=== PATIENT | male | born 1965 | race Caucasian/White ===

== ENCOUNTER 2021-08-28 11:34 | Inpatient (IN) ==
[2021-08-28] MEDS ORDERED: cefTRIAXone 2 GM in DEXTROSE 5% IN WATER 50 ML IV ONE ×2 (11:57→12:57)
[2021-08-28] MEDS ORDERED: 0.9 % SODIUM CHLORIDE 1,000 ML IV ONE ×3 (11:57→16:23)
--- NOTE | 2021-08-28 12:06 | Emergency Department Note ---
HPI General Chief complaint: Urogenital-Male Stated complaint: fever, chills, urethral pain, low white count Time Seen by Provider: 08/28/21 11:55 Source: patient Mode of arrival: ambulatory Limitations: no limitations History of Present Illness HPI Narrative: Narrative: 56 yo M w/ h/o DM2, CAD, asthma, p/w possible sepsis. He presented to minor care this AM w/ dysuria, urinary frequency, fever, and malaise, which all started last night. Sx have been constant w/ no alleviating/aggravating factors since then. He has had one previous episode of UTI in the past but not this severe. He denies any immunosuppression Hx and is not on any immunosuppressing agents including steroids. At minor care he was found to be tachycardic, his WBC were 18, and his UA was positive. He was started on a 1L NS bolus w/ minimal i mprovement in HR and was thus sent here for ongoing care. Related Data Home Medications Medication Instructions Recorded Confirmed albuterol sulfate 90 mcg/actuation 2 puff INHALATION Q4H g 06/26/20 08/28/21 aerosol inhaler atorvastatin 40 mg tablet 40 mg PO QDAY 06/26/20 08/28/21 metformin 1,000 mg tablet 1,000 mg PO BID 06/26/20 08/28/21 clopidogrel 75 mg tablet 75 mg PO QDAY 11/21/20 08/28/21 Previous Rx's Medication Instructions Recorded sulfamethoxazole 800 1 tab PO BID 5 Days #10 tab 08/28/21 mg-trimethoprim 160 mg tablet Allergies Allergy/AdvReac Type Severity Reaction Status Date / Time No Known Drug Allergies Allergy Verified 08/28/21 11:47 Review of Systems ROS ROS Narrative: Narrative: All systems ED: reviewed and negative except as stated. PFSH Narrative Patient History Narrative: Narrative: Medical/Surgical/Family History All Active Problems (Updated 08/28/21 @ 15:08 by Calvin Rodriguez MD) Asthma (Acute) Pyelonephritis (Acute) Dysuria (Acute) DM2 (diabetes mellitus, type 2) (Acute) Sepsis (Acute) Acute UTI (Acute) Dehydration (Acute) CATALINO (obstructive sleep apnea) (Chronic) Coronary artery disease (Acute) Snoring (Acute) Hypersomnia (Acute) GERD (gastroesophageal reflux disease) (Acute) Occlusion and stenosis of unspecified carotid artery (Chronic) Transient cerebral ischemic attack, unspecified (Chronic) Easy bruising (Chronic) History of patent ductus arteriosus (Chronic ~10/19/69) Diabetes mellitus, type II (Chronic) Heart disease, congenital (Chronic) Dyspnea (Chronic) Medical History (Updated 08/28/21 @ 15:08 by Calvin Rodriguez MD) Coronary artery disease Diabetes mellitus, type II Dyspnea Easy bruising GERD (gastroesophageal reflux disease) Heart disease, congenital History of patent ductus arteriosus (~10/19/69) Hypersomnia Occlusion and stenosis of unspecified carotid artery CATALINO (obstructive sleep apnea) Snoring Transient cerebral ischemic attack, unspecified Surgical History Patent ductus arteriosus 1970 Family History Other No pertinent family history Social History Smoking Status: Never smoker Alcohol Intake Frequency: does not drink Substance Use: does not use Exam Narrative Narrative: Narrative: General Limitations: no limitations General appearance: Present alert and in no apparent distress Head Head: Present atraumatic and normocephalic ENT ENT: Present normal oropharynx and mucous membranes moist Chest Chest: Present normal inspection and symmetric chest wall rise Respiratory Respiratory: Present normal lung sounds bilaterally; Absent respiratory distress, rales/crackles, wheezes and stridor Cardiovascular Cardiovascular: Present regular rate, normal rhythm, +S1, +S2 and other (2+ B/L radial pulses); Absent systolic murmur and diastolic murmur Adbominal Abdominal: Present soft and normal bowel sounds; Absent distention and tenderness Extremities Extremities: Absent pedal edema Neurological Neurological: Present alert and oriented X3 Psychiatric Psychiatric: Present normal affect Skin Skin: Present warm (WNL) and dry Course Vital Signs Vital signs: Vital Signs Temperature 99.3 F H 08/28/21 11:36 Pulse Rate 107 H 08/28/21 11:36 Respiratory Rate 18 08/28/21 11:36 Blood Pressure 133/70 08/28/21 11:36 Pulse Oximetry (%) 97 08/28/21 11:36 Temperature 98.6 F 08/28/21 17:02 Pulse Rate 112 H 08/28/21 17:02 Respiratory Rate 18 08/28/21 17:02 Blood Pressure 101/54 08/28/21 17:02 Pulse Oximetry (%) 98 08/28/21 17:02 MDM MDM Narrative Medical decision making narrative: Narrative: 56 yo M w/ h/o DM2, CATALINO, CAD, p/w dysuria, tachycardia. DDx- sepsis, UTI, pyelonephritis, septic stone Pt presented w/ mild tachycardia but overall well appearing in NAD, nontoxic. He had already been Tx'd w/ 1L NS at [facility] care, and labs already confirmed UTI and WBC 18. Clinically he had no flank pain, N/V that would suggest pyelo, and he had no flank pain, hematuria, renal colic that would indicate nephrolithiasis. His evaluation was c/w sepsis d/t UTI. I Tx'd him w/ rocephin, 3L NS. He tolerated all interventions well and was then admitted to the hospitalist. Lab Data Lab results reviewed: Yes I reviewed the patient's lab results. Labs: Lab Results 08/28/21 08/28/21 Range/Units 12:50 15:00 VBG Lactic Acid 1.1 (0.5-2.0) mmol/L Urine Color Yellow Urine Appearance Clear (Clear) Urine pH 7.0 (5.0-9.0) Ur Specific [place] 1.005 (1.000-1.035) Urine Protein Negative (Negative) mg/dL Urine Glucose (UA) 50 A (Negative) mg/dL Urine Ketones 20 A (Negative) mg/dL Urine Occult Blood 0.03 (Negative) mg/dL Urine Nitrate Negative (Negative) Urine Bilirubin Negative (Negative) mg/dL Urine Urobilinogen Negative mg/dL Ur Leukocyte Esterase 250 A (Negative) /uL Urine RBC 0 (0-3) /hpf Urine WBC 35 H (0-4) /hpf Ur Squamous Epith Cells 0 (0-4) /hpf Urine Bacteria None (0) /hpf Ur Culture Indicated? yes CC TIME Critical Care Time Total Critical Care Time: 35 Attestation: The very real possibility of disability or existed without emergent intervention. Organ systems at risk included CVS, . Interventions included sepsis fluids, antibiotics. No procedures were required. Discharge Plan Patient/Caregiver Discharge Instructions Pt seen by GASTROENTEROLOGY NURSE PRACTITIONER/PA only: No Clinical Impression: Dysuria, DM2 (diabetes mellitus, type 2), Sepsis, Acute UTI Patient Disposition: Xfer As Inpt ([facility]) Condition: Fair Discharge Date/Time: 08/28/21 16:21
[2021-08-28] MEDS ORDERED: cefTRIAXone 1 GM VIAL IV ONE (14:56)
--- NOTE | 2021-08-28 15:08 | Internal Med History&Physical ---
HPI History of Present Illness Patient information: Note initiated : 08/28/21 at 3:04 pm Service Date, if different from initiated Date: [] Patient: Vinay Clayton a 56 y/o M admitted on for fever, chills, urethral pain, low white count. Chief Complaint: [pyelonephritis] History of present illness: Mr. Clayton is a 56 year old M history of type 2 diabetes mellitus, CAD, asthma, presenting with 2-day history of fever, chills, nausea, increased urinary frequency, and dysuria. Last prior similar episode was 1 year ago. Yesterday evening he started to have acute onset of fever, chills, nausea, increased urinary frequency, and dysuria. In addition, he cannot take much oral intakes since then. He went to minor urgent care clinic earlier this morning, and was being sent to our ED for further evaluations. Vital signs significant for tachycardia and tachypnea heart rate 110s, and with the breathing in the upper 20s. Rest of the vital signs in the normal limits. Labs significant for leukocytosis with WBC 18.5. Lactic acid normal at 1.1. Urinalysis suggest the presence of urinary tract infections. Constitutional Constitutional: Present chills, fever(s) and weakness; Absent excessive sweating and fatigue EENT Eyes: Absent blurry vision, change in vision, loss of vision and other visual disturbances Ears: Absent decreased hearing and tinnitus Nose, mouth and throat: Absent abnormal hearing, dry mouth, headache(s), nasal congestion and sore throat Cardiovascular Cardiovascular: Absent chest pain, chest pain at rest, edema, irregular heart rhythm and palpatations Respiratory Respiratory: Absent cough, dyspnea and wheezing Gastrointestinal Gastrointestinal: Present nausea; Absent abdominal pain, constipation, diarrhea and vomiting Genitourinary Genitourinary: dysuria and urinary frequency Musculoskeletal Musculoskeletal: Absent back pain, deformity, limited range of motion, muscle cramps, muscle weakness and numbness Integumentary Integumentary: Absent lesions, rash and wounds Neurological Neurological: Absent focal weakness, headache(s) and numbness Psychiatric Psychiatric: Absent anxiety, depression and hallucinations PFSH PFSH All Active Problems (Updated 08/28/21 @ 15:08 by Calvin Rodriguez MD) Asthma (Acute) Pyelonephritis (Acute) Dysuria (Acute) DM2 (diabetes mellitus, type 2) (Acute) Sepsis (Acute) Acute UTI (Acute) Dehydration (Acute) CATALINO (obstructive sleep apnea) (Chronic) Coronary artery disease (Acute) Snoring (Acute) Hypersomnia (Acute) GERD (gastroesophageal reflux disease) (Acute) Occlusion and stenosis of unspecified carotid artery (Chronic) Transient cerebral ischemic attack, unspecified (Chronic) Easy bruising (Chronic) History of patent ductus arteriosus (Chronic ~10/19/69) Diabetes mellitus, type II (Chronic) Heart disease, congenital (Chronic) Dyspnea (Chronic) Medical History (Updated 08/28/21 @ 15:08 by Calvin Rodriguez MD) Coronary artery disease Diabetes mellitus, type II Dyspnea Easy bruising GERD (gastroesophageal reflux disease) Heart disease, congenital History of patent ductus arteriosus (~10/19/69) Hypersomnia Occlusion and stenosis of unspecified carotid artery CATALINO (obstructive sleep apnea) Snoring Transient cerebral ischemic attack, unspecified Surgical History Patent ductus arteriosus 1970 Family History Other No pertinent family history Social History education level: college occupational status: employed alcohol intake frequency: does not drink substance use type: does not use MEDS/ALLERGIES Home Medications and Allergies Home Medications Medication Instructions Recorded Confirmed Type albuterol sulfate 90 mcg/actuation 2 puff INHALATION Q4H g 06/26/20 08/28/21 History aerosol inhaler atorvastatin 40 mg tablet 40 mg PO QDAY 06/26/20 08/28/21 History metformin 1,000 mg tablet 1,000 mg PO BID 06/26/20 08/28/21 History clopidogrel 75 mg tablet 75 mg PO QDAY 11/21/20 08/28/21 History sulfamethoxazole 800 1 tab PO BID 5 Days #10 tab 08/28/21 08/28/21 Rx mg-trimethoprim 160 mg tablet Allergies Allergy/AdvReac Type Severity Reaction Status Date / Time No Known Drug Allergies Allergy Verified 08/28/21 11:47 EXAM Constitutional Vitals: Temp Pulse Resp BP Pulse Ox 37.4 C H 111 H 26 H 102/64 96 08/28/21 11:36 08/28/21 15:02 08/28/21 15:02 08/28/21 15:02 08/28/21 15:02 General appearance: cooperative, mild distress and no acute distress Head Head exam: Present atraumatic and normocephalic Eye Eye exam: Present EOMI and PERRL ENT ENT exam: Present mucous membranes moist, normal exam and normal external ear exam Neck Neck exam: Present normal inspection; Absent lymphadenopathy, tenderness and thyromegaly Respiratory Respiratory exam: Absent accessory muscle use, respiratory distress and wheezes Cardiovascular Cardiovascular exam: Present tachycardia; Absent JVD GI/Abdominal GI/Abdominal exam: Present normal bowel sounds and soft; Absent organomegaly and tenderness Rectal Rectal exam: Present deferred Extremities Exam Extremities exam: Present full ROM, normal capillary refill and normal inspection; Absent tenderness Neurological Exam Neurological exam: Present alert, CN II-XII intact and oriented X3; Absent motor sensory deficit Psychiatric Psychiatric exam: Present normal affect and normal mood; Absent anxious and depressed Skin Skin exam: Present dry and intact DATA Data Completed and Pending Labs: Labs from last 24 hours 08/28/21 12:50 VBG Lactic Acid 1.1 A/P Assessment and plan (1) DM2 (diabetes mellitus, type 2): Status: Acute (2) Sepsis: Status: Acute (3) Coronary artery disease: Status: Acute Qualifiers: Coronary Disease-Associated Artery/Lesion type: [place] artery [place] vs. transplanted heart: [place] heart Associated angina: without angina Qualified Code(s): I25.10 - Atherosclerotic heart disease of [place] coronary artery without angina pectoris (4) Pyelonephritis: Status: Acute (5) Asthma: Status: Acute Narrative A/P Narrative: Assessment and Plans: 1. Pyelonephritis: Admit to inpatient med surg Serial lactic acid Procalcitonin Blood culture Urine culture cbc w/ auto diff in the morning to trend WBC 3L IV fluid boluses given in the ED, to be followed by NS@100cc/hr Rocephin Tylenol PRN fever Zofran IV PRN nausea vomiting 2. T2DM: HgA1c Hold Metformin Low dose correctional scale insulin AC HS Accu Chek AC HS Hypoglycemia protocol Diabetic diet 3. Asthma: DuoNEB NEB PRN wheezing 4. h/o coronary arterial disease: Plavix Statin GI ppx: not currently indicated DVT ppx: Lovenox Code status: Full Prognosis: guarded Disposition: inpatient med surg Time Spent With Patient Time: Total time spent is greater than 50% in coordination of care (as documented) at patient's floor/unit and/or counseling patient: Total time spent with greater than 50% in coordination of care (as documented) at patient's floor/unit and/or counseling patient:: Greater than 35 minutes
[2021-08-28 16:07] LABS: Appearance,Urine CLEAR (Clear); Bilirubin,Urine Negative (Negative); Color,Urine YELLOW; Culture Indicated,Urine yes; Glucose,Urine (UA) 50 mg/dL (Negative); Ketones,Urine 20 mg/dL (Negative); Leukocyte Esterase,Urine 250 /uL (Negative); Nitrate,Urine Negative (Negative); Protein,Urine Negative (Negative); Specific Gravity,Urine 1.005 (1.000-1.035); Urine Blood 0.03 mg/dL (Negative); Urine RBC 0 /hpf (0-3); Urine Squamous Epithelial Cell 0 /hpf (0-4); Urine WBC 35 /hpf (0-4); Urobilinogen,Urine Negative
[2021-08-28] MEDS ORDERED: morphine 4 MG/ML VIAL IV PRN (16:23)
[2021-08-28] MEDS ORDERED: ONDANSETRON 4 MG/2 ML VIAL IV PRN ×2 (16:23→19:29)
[2021-08-28] MEDS ORDERED: hydrALAZINE 20 MG/ML VIAL IV PRN ×2 (16:23→19:29)
[2021-08-28] MEDS ORDERED: DEXTROSE 31 GM ORAL.SUSP PO PRN ×2 (16:23→19:29)
[2021-08-28] MEDS ORDERED: oxyCODONE HCL 5 MG TABLET PO PRN (16:23)
[2021-08-28] MEDS ORDERED: IPRATROPIUM/ALBUTEROL 3 ML AMPUL.NEB NEB PRN ×2 (16:23→19:29)
[2021-08-28] MEDS ORDERED: ALBUTEROL SULFATE 200 PUFF INHALER INH SCH ×2 (16:23→20:23)
[2021-08-28] MEDS ORDERED: DEXTROSE 50% 50 ML VIAL IV PRN ×2 (16:23→19:29)
[2021-08-28] MEDS ORDERED: ZOLPIDEM 5 MG TABLET PO PRN ×2 (16:23→19:29)
[2021-08-28] MEDS ORDERED: ACETAMINOPHEN 325 MG TABLET PO PRN ×2 (16:23→19:29)
[2021-08-28] MEDS ORDERED: INSULIN LISPRO 1 UNIT/0.01 ML UNIT SQ SCH (17:00)
[2021-08-28] MEDS: 0.9 % SODIUM CHLORIDE 1,000 ML IV SCH ×3 (17:39→19:42)
[2021-08-28 17:46] LABS: Hemoglobin A1C 8.7 % Hgb (4.0-6.0)
[2021-08-28] MEDS ORDERED: NOREPINEPHRINE BITARTRATE 16 MG in 0.9 % SODIUM CHLORIDE 234 ML IV SCH (19:30)
[2021-08-28] MEDS ORDERED: ONDANSETRON 4 MG/2 ML VIAL ONE (19:52)
[2021-08-28] MEDS ORDERED: ALBUTEROL SULFATE 200 PUFF INHALER INH PRN (20:23)
[2021-08-28] MEDS ORDERED: DOCUSATE SODIUM 100 MG CAPSULE PO SCH (21:00)
[2021-08-28] MEDS ORDERED: SENNOSIDES 1 TABLET PO SCH ×2 (21:00)
[2021-08-28] MEDS: DOCUSATE SODIUM 100 MG CAPSULE PO SCH (21:16)
[2021-08-28] MEDS: INSULIN LISPRO 1 UNIT/0.01 ML UNIT SQ SCH (21:17)
[2021-08-28] MEDS: 0.9 % SODIUM CHLORIDE 10 ML SYRINGE IV SCH (21:18)
[2021-08-28] MEDS ORDERED: 0.9 % SODIUM CHLORIDE 10 ML SYRINGE IV SCH (22:00)
[2021-08-29] MEDS: 0.9 % SODIUM CHLORIDE 250 ML IV SCH ×3 (01:13→16:29)
[2021-08-29] MEDS: 0.9 % SODIUM CHLORIDE 1,000 ML IV SCH ×2 (04:45→15:00)
[2021-08-29] MEDS: 0.9 % SODIUM CHLORIDE 10 ML SYRINGE IV SCH ×4 (05:41→22:29)
[2021-08-29 07:30] LABS: ALT/SGPT 24 U/L (<40); AST/SGOT 12 U/L (<40); Albumin 3.6 gm/dL (3.2-5.2); Albumin/Globulin Ratio 1.5 (1.0-2.3); Alkaline Phosphatase 54 U/L (39-117); Blood Urea Nitrogen 8 mg/dL (6-20); Calcium 8.2 mg/dL (8.6-10.4); Carbon Dioxide 22 mmol/L (22-30); Chloride 101 mmol/L (96-108); Globulin 2.4 gm/dL (2.2-3.7); Glomerular Filtration Rate 101; Glucose 167 mg/dL (70-105)
[2021-08-29] MEDS ORDERED: NOREPINEPHRINE BITARTRATE 16 MG in 0.9 % SODIUM CHLORIDE 234 ML IV PRN ×2 (07:30→13:04)
[2021-08-29] MEDS ORDERED: POTASSIUM CHLORIDE 10 MEQ TABLET PO SCH (08:00)
[2021-08-29] MEDS: INSULIN LISPRO 1 UNIT/0.01 ML UNIT SQ SCH ×4 (08:03→21:05)
[2021-08-29] MEDS ORDERED: ENOXAPARIN 40 MG/0.4 ML SYRINGE SQ SCH ×2 (09:00)
[2021-08-29] MEDS ORDERED: [UNRECOGNIZED DRUG - OTHER] PO SCH (09:00)
[2021-08-29] MEDS ORDERED: cefTRIAXone 2 GM in DEXTROSE 5% IN WATER 50 ML IV SCH ×2 (09:00)
[2021-08-29] MEDS ORDERED: NATTOKINASE PO SCH (09:00)
[2021-08-29] MEDS ORDERED: ATORVASTATIN 40 MG TABLET PO SCH ×2 (09:00)
[2021-08-29] MEDS ORDERED: CLOPIDOGREL 75 MG TABLET PO SCH ×2 (09:00)
[2021-08-29] MEDS ORDERED: POTASSIUM CHLORIDE 10 MEQ PO SCH (09:00)
[2021-08-29] MEDS ORDERED: [UNRECOGNIZED DRUG - OTHER] PO SCH (09:00)
[2021-08-29] MEDS: DOCUSATE SODIUM 100 MG CAPSULE PO SCH ×2 (09:45→21:02)
[2021-08-29 10:11] LABS: Basophils # (Auto) 0.05 K/mcL (0.00-0.30); Basophils % (Auto) 0.3 % (0.0-2.0); Eosinophils # (Auto) 0 K/mcL (0.00-0.70); Eosinophils % (Auto) 0 % (0.0-7.0); Hematocrit 40.3 % (40.1-51.0); Hemoglobin 13.7 g/dL (13.7-17.5); Lymphocytes # (Auto) 1.46 K/mcL (1.50-4.80); Monocytes # (Auto) 1.43 K/mcL (0.10-0.90); Monocytes % (Auto) 7.8 % (1.0-12.0); Neutrophils % (Auto) 83.9 % (38.0-78.0); Platelet Count 124 K/mcL (140-440); RBC 4.43 M/mcL (4.63-6.08); Red Cell Distribution Width 12.2 % (11.5-14.5); WBC 18.3 K/mcL (4.5-11.0)
--- NOTE | 2021-08-29 11:15 | Internal Med Progress Note ---
SUBJECTIVE Subjective Patient information: Note initiated : 08/29/21 at 11:11 am Service Date, if different from initiated Date: [] Patient: Vinay Clayton a 56 y/o M admitted on 08/28/21 for fever, chills, urethral pain, low white count. Chief Complaint: [Pyelonephritis] Interval history: History of present illness: Mr. Clayton is a 56 year old M h istory of type 2 diabetes mellitus, CAD, asthma, presenting with 2-day history of fever, chills, nausea, increased urinary frequency, and dysuria. Last prior similar episode was 1 year ago. Yesterday evening he started to have acute onset of fever, chills, nausea, increased urinary frequency, and dysuria. In addition, he cannot take much oral intakes since then. He went to [facility] urgent care clinic earlier this morning, and was being sent to our ED for further evaluations. Vital signs significant for tachycardia and tachypnea heart rate 110s, and with the breathing in the upper 20s. Rest of the vital signs in the normal limits. Labs significant for leukocytosis with WBC 18.5. Lactic acid normal at 1.1. Urinalysis suggest the presence of urinary tract infections. 08/29: Transferred to inpatient ICU. Afebrile. Blood and urine cultures no growth to date. WBC 18.3. Denies any dysuria. Denies any increased urinary frequency. Denies any fever or chills or sweating. Improving general body weakness. Constitutional Vitals: Vital Signs Temp Pulse Resp BP Pulse Ox 36.9 C 85 26 H 116/79 95 08/29/21 08:01 08/29/21 09:01 08/29/21 09:01 08/29/21 09:01 08/29/21 09:01 Period Temp Pulse Resp BP Sys/[place] Pulse Ox Last 24 Hr 36.9 C-39.2 C 85-112 10-31 76-160/46-79 91-98 Intake and Output 08/28/21 08/29/21 08/29/21 21:59 05:59 13:59 Intake Total 1750 1300 290 Output Total 150 500 350 Balance 1600 800 -60 Weight 85.814 kg Intake & Output: Intake & Output 08/28/21 08/29/21 08/29/21 21:59 05:59 13:59 Intake Total 1750 1300 290 Output Total 150 500 350 Balance 1600 800 -60 Weight 85.814 kg Intake: IV 1750 1300 50 Sodium Chloride 0.9% 1,000 ml @ 1700 1300 100 mls/hr IV .Q10H KEM Rx#: [id number] Rocephin 2 gm In Dextrose 5% in 50 50 Water 50 ml @ 100 mls/hr IV Q24H KEM Rx#:[id number] Oral 240 Output: Void Amount 150 500 350 Other: Meal Breakfast Percent of Meal Consumed 100% Feeding Ability Independent Urine Appearance Clear Clear Clear Urine Color Bright Yellow [place] Bright Yellow Urine Odor Strong General appearance: cooperative and no acute distress Head Head exam: Present atraumatic and normocephalic Eye Eye exam: Present EOMI and PERRL ENT ENT exam: Present mucous membranes moist, normal exam and normal external ear exam Neck Neck exam: Present normal inspection; Absent lymphadenopathy, tenderness and thyromegaly Respiratory Respiratory exam: Absent accessory muscle use, respiratory distress and wheezes Cardiovascular Cardiovascular exam: Present normal rate and rhythm; Absent JVD GI/Abdominal GI/Abdominal exam: Present normal bowel sounds and soft; Absent organomegaly and tenderness Rectal Rectal exam: Present deferred Extremities Exam Extremities exam: Present full ROM, normal capillary refill and normal inspection; Absent tenderness Neurological Exam Neurological exam: Present alert, CN II-XII intact and oriented X3; Absent motor sensory deficit Psychiatric Psychiatric exam: Present normal affect and normal mood; Absent anxious and depressed Skin Skin exam: Present dry and intact OBJ DATA Labs CBC & Chem 7: 08/29/21 04:57 08/29/21 04:57 Labs: Abnormal Lab Results 08/29/21 08/29/21 08/28/21 04:57 04:57 15:00 WBC 18.3 H RBC 4.43 L Plt Count 124 L MPV 13.0 H Neut % (Auto) 83.9 H Lymph % (Auto) 8.0 L Lymph # (Auto) 1.46 L [place] # (Auto) 1.43 H Absolute Neutrophils 15.36 H Glucose 167 H Hemoglobin A1c Calcium 8.2 L Total Bilirubin 2.0 H Procalcitonin Urine Glucose (UA) 50 A Urine Ketones 20 A Ur Leukocyte Esterase 250 A Urine WBC 35 H 08/28/21 08/28/21 10:51 10:51 WBC RBC Plt Count MPV Neut % (Auto) Lymph % (Auto) Lymph # (Auto) [place] # (Auto) Absolute Neutrophils Glucose Hemoglobin A1c 8.7 H Calcium Total Bilirubin Procalcitonin 0.14 H Urine Glucose (UA) Urine Ketones Ur Leukocyte Esterase Urine WBC Meds: Medications Acetaminophen (Acetaminophen 325 Mg Tablet) 650 mg PO Q6HP PRN; Protocol PRN Reason: Per Pain Protocol/Fever > 101 Albuterol Sulfate (Albuterol Sulfate 200 Puff Inhaler) 2 puff INH Q4HP PRN PRN Reason: Shortness Of Breath Albuterol/Ipratropium (Ipratropium/Albuterol 3 Ml Ampul.Neb) 3 ml NEB Q4HP PRN PRN Reason: Shortness Of Breath Atorvastatin Calcium (Atorvastatin 40 Mg Tablet) 40 mg PO QDAY [facility] Last Admin: 08/29/21 08:04 Dose: 40 mg Documented by: Clopidogrel Bisulfate (Clopidogrel 75 Mg Tablet) 75 mg PO QDAY [facility] Last Admin: 08/29/21 09:45 Dose: Not Given Documented by: Dextrose (Dextrose 50% 50 Ml Vial) 0 ml IV UD PRN PRN Reason: Hypoglycemia Diagnostic Test (Pha) (Accu-Chek 1 Each Strip) 1 each FS ACHS [facility] Last Admin: 08/29/21 07:25 Dose: 1 each Documented by: Docusate Sodium (Docusate Sodium 100 Mg Capsule) 100 mg PO BID [facility] Last Admin: 08/29/21 09:45 Dose: Not Given Documented by: Enoxaparin Sodium (Enoxaparin 40 Mg/0.4 Ml Syringe) 40 mg SQ DAILY [facility] Last Admin: 08/29/21 08:04 Dose: 40 mg Documented by: Glucose (Dextrose 31 Gm Oral.Susp) 15 gm PO PRN PRN PRN Reason: Hypoglycemia Hydralazine HCl (Hydralazine 20 Mg/Ml Vial) 10 mg IV Q4-6HP PRN PRN Reason: Hypertension Sodium Chloride (Sodium Chloride 0.9%) 1,000 mls @ 100 mls/hr IV .Q10H [facility] Last Admin: 08/29/21 04:45 Dose: 100 mls/hr Documented by: Ceftriaxone Sodium 2 gm/ (Dextrose) 50 mls @ 100 mls/hr IV Q24H [facility] Last Infusion: 08/29/21 10:53 Dose: Infused Documented by: Sodium Chloride (Sodium Chloride 0.9%) 250 mls @ 20 mls/hr IV .[id number] [facility] Last Admin: 08/29/21 09:45 Dose: Not Given Documented by: Norepinephrine Bitartrate 16 (mg/ Sodium Chloride) 250 mls @ 9.375 mls/hr IV Q24HP PRN; Protocol PRN Reason: Hypotension Insulin Human Lispro (Insulin Lispro 1 Unit/0.01 Ml Unit) 0 unit SQ [facility]; Protocol Last Admin: 08/29/21 08:03 Dose: 1 units Documented by: Ondansetron HCl (Ondansetron 4 Mg/2 Ml Vial) 4 mg IV Q6HP PRN PRN Reason: Nausea And Vomiting Last Admin: 08/28/21 19:54 Dose: 4 mg Documented by: Soybean, Fermented [ Nattokinase] 50 Mg Tab 1 dose PO DAILY [facility] Last Admin: 08/29/21 09:45 Dose: Not Given Documented by: Potassium Chloride (Potassium Chloride 10 Meq Tablet) 10 meq PO QAMCC [facility] Last Admin: 08/29/21 08:04 Dose: 10 meq Documented by: Senna (Sennosides 1 Tablet) 2 tab PO HS [facility] Last Admin: 08/28/21 21:18 Dose: Not Given Documented by: Sodium Chloride (0.9 % Sodium Chloride 10 Ml Syringe) 10 ml IV Q8 [facility] Last Admin: 08/29/21 05:41 Dose: Not Given Documented by: Zolpidem Tartrate (Zolpidem 5 Mg Tablet) 5 mg PO HSP PRN PRN Reason: Insomnia A/P Assessment and plan (1) DM2 (diabetes mellitus, type 2): Status: Acute (2) Sepsis: Status: Acute (3) Coronary artery disease: Status: Acute Qualifiers: Coronary Disease-Associated Artery/Lesion type: [place] artery [place] vs. transplanted heart: [place] heart Associated angina: without angina Qualified Code(s): I25.10 - Atherosclerotic heart disease of [place] coronary artery without angina pectoris (4) Pyelonephritis: Status: Acute (5) Asthma: Status: Acute Narrative A/P Narrative: Assessment and Plans: 1. Pyelonephritis: Transfer back from ICU to med surg Serial lactic acid 1.1 Procalcitonin 0.14 Blood culture, no growth to date Urine culture, no growth to date cbc w/ auto diff in the morning to trend WBC 3L IV fluid boluses given in the ED, to be followed by NS@100cc/hr Rocephin Tylenol PRN fever Zofran IV PRN nausea vomiting Levophed available to keep MAP>=65mmHg 2. T2DM: HgA1c 8.7 Hold Metformin Low dose correctional scale insulin AC HS Accu Chek AC HS Hypoglycemia protocol Diabetic diet 3. Asthma: DuoNEB NEB PRN wheezing 4. h/o coronary arterial disease: Plavix Statin GI ppx: not currently indicated DVT ppx: Lovenox Code status: Full Prognosis: guarded Disposition: Transfer back from ICU to med surg Critical Care Time: 30min Time Spent With Patient Time: Total time spent is greater than 50% in coordination of care (as documented) at patient's floor/unit and/or counseling patient: QUALITY Stroke Symptom Onset Unknown: No VTE Deep Vein Thrombosis/Pulmonary Embolism Present on Admission: No
[2021-08-29] MEDS ORDERED: ONDANSETRON 4 MG/2 ML VIAL IV PRN (13:04)
[2021-08-29] MEDS ORDERED: DEXTROSE 31 GM ORAL.SUSP PO PRN (13:04)
[2021-08-29] MEDS ORDERED: ZOLPIDEM 5 MG TABLET PO PRN (13:04)
[2021-08-29] MEDS ORDERED: DEXTROSE 50% 50 ML VIAL IV PRN (13:04)
[2021-08-29] MEDS ORDERED: hydrALAZINE 20 MG/ML VIAL IV PRN (13:04)
[2021-08-29] MEDS ORDERED: ALBUTEROL SULFATE 200 PUFF INHALER INH PRN (13:04)
[2021-08-29] MEDS ORDERED: IPRATROPIUM/ALBUTEROL 3 ML AMPUL.NEB NEB PRN (13:04)
[2021-08-29] MEDS: ACETAMINOPHEN 325 MG TABLET PO PRN ×2 (16:44→23:22)
[2021-08-29] MEDS: SENNOSIDES 1 TABLET PO SCH (21:03)
[2021-08-30] MEDS: 0.9 % SODIUM CHLORIDE 1,000 ML IV SCH ×2 (01:00→10:16)
[2021-08-30] MEDS: 0.9 % SODIUM CHLORIDE 10 ML SYRINGE IV SCH ×3 (05:15→21:51)
[2021-08-30] MEDS: 0.9 % SODIUM CHLORIDE 250 ML IV SCH (07:08)
[2021-08-30 07:11] LABS: Basophils # (Auto) 0.06 K/mcL (0.00-0.30); Basophils % (Auto) 0.5 % (0.0-2.0); Eosinophils # (Auto) 0.13 K/mcL (0.00-0.70); Eosinophils % (Auto) 1.1 % (0.0-7.0); Hemoglobin 12.6 g/dL (13.7-17.5); Lymphocytes # (Auto) 1.66 K/mcL (1.50-4.80); Lymphocytes % (Auto) 13.9 % (15.5-49.0); Mean Cell Volume 90.7 fL (80.0-100.0); Mean Corpuscular HGB Conc 34.1 g/dL (31.0-36.0); Monocytes # (Auto) 0.99 K/mcL (0.10-0.90); Monocytes % (Auto) 8.3 % (1.0-12.0); Neutrophils % (Auto) 76.2 % (38.0-78.0); Platelet Count 118 K/mcL (140-440); RBC 4.08 M/mcL (4.63-6.08); Red Cell Distribution Width 12.4 % (11.5-14.5); WBC 11.9 K/mcL (4.5-11.0)
[2021-08-30 07:12] LABS: ALT/SGPT 27 U/L (<40); AST/SGOT 17 U/L (<40); Albumin 3.2 gm/dL (3.2-5.2); Albumin/Globulin Ratio 1.3 (1.0-2.3); Alkaline Phosphatase 62 U/L (39-117); Bilirubin,Total 1.6 mg/dL (0.1-1.0); Blood Urea Nitrogen 7 mg/dL (6-20); Carbon Dioxide 23 mmol/L (22-30); Chloride 104 mmol/L (96-108); Globulin 2.5 gm/dL (2.2-3.7); Glomerular Filtration Rate 107; Glucose 137 mg/dL (70-105)
[2021-08-30] MEDS: DOCUSATE SODIUM 100 MG CAPSULE PO SCH ×2 (07:49→21:40)
[2021-08-30] MEDS: NATTOKINASE PO SCH (07:49)
[2021-08-30] MEDS: ENOXAPARIN 40 MG/0.4 ML SYRINGE SQ SCH (08:05)
[2021-08-30] MEDS: POTASSIUM CHLORIDE 10 MEQ TABLET PO SCH (08:05)
[2021-08-30] MEDS: INSULIN LISPRO 1 UNIT/0.01 ML UNIT SQ SCH ×4 (08:05→21:48)
[2021-08-30] MEDS: ACETAMINOPHEN 325 MG TABLET PO PRN ×2 (08:06→21:33)
[2021-08-30] MEDS: ATORVASTATIN 40 MG TABLET PO SCH (08:06)
[2021-08-30] MEDS: cefTRIAXone 2 GM in DEXTROSE 5% IN WATER 50 ML IV SCH (09:00)
[2021-08-30] MEDS ORDERED: CLOPIDOGREL 75 MG TABLET PO SCH (09:00)
--- NOTE | 2021-08-30 11:58 | Internal Med Progress Note ---
SUBJECTIVE Subjective Patient information: Note initiated : 08/30/21 at 11:53 am Service Date, if different from initiated Date: [] Patient: Vinay Clayton a 56 y/o M admitted on 08/28/21 for fever, chills, urethral pain, low white count. Chief Complaint: [] Interval history: History of present illness: Mr. Clayton is a 56 year old M history of type 2 diabetes mellitus, CAD, asthma, presenting with 2-day history of fever, chills, nausea, increased urinary frequency, and dysuria. Last prior similar episode was 1 year ago. Yesterday evening he started to have acute onset of fever, chills, nausea, increased urinary frequency, and dysuria. In addition, he cannot take much oral intakes since then. [facility] morning, and was being sent to our ED for further evaluations. Vital signs significant for tachycardia and tachypnea heart rate 110s, and with the breathing in the upper 20s. Rest of the vital signs in the normal limits. Labs significant for leukocytosis with WBC 18.5. Lactic acid normal at 1.1. Urinalysis suggest the presence of urinary tract infections. 08/29: Transferred to inpatient ICU. Afebrile. Blood and urine cultures no growth to date. WBC 18.3. Denies any dysuria. Denies any increased urinary frequency. Denies any fever or chills or sweating. Improving general body weakness. 08/30: Low grade fever Tmax 37.8 last night. Blood and urine cultures no growth to date. WBC 18.3-->11.9. Denies any dysuria. Denies any increased urinary frequency. Lower abdominal aches. No nausea or vomiting. Good appetite. Constitutional Vitals: Vital Signs Temp Pulse Resp BP Pulse Ox 36.9 C 71 20 139/88 96 08/30/21 07:48 08/30/21 05:01 08/30/21 07:48 08/30/21 07:48 08/30/21 07:48 Period Temp Pulse Resp BP Sys/[place] Pulse Ox Last 24 Hr 36.6 C-38.7 C 71-94 14-26 117-139/67-88 92-98 Intake and Output 08/29/21 08/30/21 08/30/21 21:59 05:59 13:59 Intake Total 1000 1240 410 Output Total 400 250 Balance 600 990 410 Weight 89.857 kg Intake & Output: Intake & Output 08/29/21 08/30/21 08/30/21 21:59 05:59 13:59 Intake Total 1000 1240 410 Output Total 400 250 Balance 600 990 410 Weight 89.857 kg Intake: IV 1000 1000 50 Sodium Chloride 0.9% 1,000 ml @ 1000 1000 100 mls/hr IV .Q10H KEM Rx#: [id number] Rocephin 2 gm In Dextrose 5% in 50 Water 50 ml @ 100 mls/hr IV Q24H KEM Rx#:[id number] Oral 240 360 Output: Void Amount 400 250 Other: Meal Yogurt Breakfast Percent of Meal Consumed 100% 100% Feeding Ability Independent Urine Appearance Cloudy Clear Clear Urine Color Bright Yellow Dark Yellow Bright Yellow Urine Odor Strong Normal # Voids 1 General appearance: cooperative and no acute distress Head Head exam: Present atraumatic and normal inspection Eye Eye exam: Present normal appearance ENT ENT exam: Present mucous membranes moist, normal exam and normal external ear exam Neck Neck exam: Present normal inspection Respiratory Respiratory exam: Present normal respiratory exam Cardiovascular Cardiovascular exam: Present normal rate and rhythm GI/Abdominal GI/Abdominal exam: Present normal bowel sounds Back Exam Back exam: Present normal inspection Neurological Exam Neurological exam: Present alert and oriented X3 Skin Skin exam: Present intact and warm OBJ DATA Labs CBC & Chem 7: 08/30/21 06:00 08/30/21 05:54 Labs: Abnormal Lab Results 08/30/21 08/30/21 08/29/21 06:00 05:54 04:57 WBC 11.9 H RBC 4.08 L Hgb 12.6 L Hct 37.0 L Plt Count 118 L MPV 13.0 H Neut % (Auto) Lymph % (Auto) 13.9 L Lymph # (Auto) [place] # (Auto) 0.99 H Absolute Neutrophils 9.08 H Glucose 137 H 167 H Hemoglobin A1c Calcium 8.0 L 8.2 L Total Bilirubin 1.6 H 2.0 H Total Protein 5.7 L Procalcitonin Urine Glucose (UA) Urine Ketones Ur Leukocyte Esterase Urine WBC 08/29/21 08/28/21 08/28/21 04:57 15:00 10:51 WBC 18.3 H RBC 4.43 L Hgb Hct Plt Count 124 L MPV 13.0 H Neut % (Auto) 83.9 H Lymph % (Auto) 8.0 L Lymph # (Auto) 1.46 L [place] # (Auto) 1.43 H Absolute Neutrophils 15.36 H Glucose Hemoglobin A1c Calcium Total Bilirubin Total Protein Procalcitonin 0.14 H Urine Glucose (UA) 50 A Urine Ketones 20 A Ur Leukocyte Esterase 250 A Urine WBC 35 H 08/28/21 10:51 WBC RBC Hgb Hct Plt Count MPV Neut % (Auto) Lymph % (Auto) Lymph # (Auto) [place] # (Auto) Absolute Neutrophils Glucose Hemoglobin A1c 8.7 H Calcium Total Bilirubin Total Protein Procalcitonin Urine Glucose (UA) Urine Ketones Ur Leukocyte Esterase Urine WBC Meds: Medications Acetaminophen (Acetaminophen 325 Mg Tablet) 650 mg PO Q6HP PRN; Protocol PRN Reason: Per Pain Protocol/Fever > 101 Last Admin: 08/30/21 08:06 Dose: 650 mg Documented by: Albuterol Sulfate (Albuterol Sulfate 200 Puff Inhaler) 2 puff INH Q4HP PRN PRN Reason: Shortness Of Breath Last Admin: 08/29/21 16:47 Dose: 2 puff Documented by: Albuterol/Ipratropium (Ipratropium/Albuterol 3 Ml Ampul.Neb) 3 ml NEB Q4HP PRN PRN Reason: Shortness Of Breath Atorvastatin Calcium (Atorvastatin 40 Mg Tablet) 40 mg PO QDAY [facility] Last Admin: 08/30/21 08:06 Dose: 40 mg Documented by: Dextrose (Dextrose 50% 50 Ml Vial) 0 ml IV UD PRN PRN Reason: Hypoglycemia Diagnostic Test (Pha) (Accu-Chek 1 Each Strip) 1 each FS ACHS [facility] Last Admin: 08/30/21 07:48 Dose: 1 each Documented by: Docusate Sodium (Docusate Sodium 100 Mg Capsule) 100 mg PO BID [facility] Last Admin: 08/30/21 07:49 Dose: Not Given Documented by: Enoxaparin Sodium (Enoxaparin 40 Mg/0.4 Ml Syringe) 40 mg SQ DAILY [facility] Last Admin: 08/30/21 08:05 Dose: 40 mg Documented by: Glucose (Dextrose 31 Gm Oral.Susp) 15 gm PO PRN PRN PRN Reason: Hypoglycemia Hydralazine HCl (Hydralazine 20 Mg/Ml Vial) 10 mg IV Q4-6HP PRN PRN Reason: Hypertension Sodium Chloride (Sodium Chloride 0.9%) 250 mls @ 20 mls/hr IV .[id number] [facility] Last Admin: 08/30/21 07:08 Dose: Not Given Documented by: Ceftriaxone Sodium 2 gm/ (Dextrose) 50 mls @ 100 mls/hr IV Q24H [facility] Last Infusion: 08/30/21 09:30 Dose: Infused Documented by: Norepinephrine Bitartrate 16 (mg/ Sodium Chloride) 250 mls @ 9.375 mls/hr IV Q24HP PRN; Protocol PRN Reason: Hypotension Insulin Human Lispro (Insulin Lispro 1 Unit/0.01 Ml Unit) 0 unit SQ [facility]; Protocol Last Admin: 08/30/21 08:05 Dose: 1 unit Documented by: Ondansetron HCl (Ondansetron 4 Mg/2 Ml Vial) 4 mg IV Q6HP PRN PRN Reason: Nausea And Vomiting Soybean, Fermented [ Nattokinase] 50 Mg Tab 1 dose PO DAILY [facility] Last Admin: 08/30/21 07:49 Dose: Not Given Documented by: Potassium Chloride (Potassium Chloride 10 Meq Tablet) 10 meq PO QAMCC [facility] Last Admin: 08/30/21 08:05 Dose: 10 meq Documented by: Senna (Sennosides 1 Tablet) 2 tab PO [facility] Last Admin: 08/29/21 21:03 Dose: Not Given Documented by: Sodium Chloride (0.9 % Sodium Chloride 10 Ml Syringe) 10 ml IV Q8 [facility] Last Admin: 08/30/21 05:15 Dose: 10 ml Documented by: Zolpidem Tartrate (Zolpidem 5 Mg Tablet) 5 mg PO HSP PRN PRN Reason: Insomnia A/P Assessment and plan (1) DM2 (diabetes mellitus, type 2): Status: Acute (2) Sepsis: Status: Acute (3) Coronary artery disease: Status: Acute Qualifiers: Coronary Disease-Associated Artery/Lesion type: [place] artery [place] vs. transplanted heart: [place] heart Associated angina: without angina Qualified Code(s): I25.10 - Atherosclerotic heart disease of [place] coronary artery without angina pectoris (4) Pyelonephritis: Status: Acute (5) Asthma: Status: Acute (6) Anemia, normocytic normochromic: Status: Acute Narrative A/P Narrative: Assessment and Plans: 1. Pyelonephritis: Stays in med surg Serial lactic acid 1.1 Procalcitonin 0.14 Blood culture, no growth to date Urine culture, no growth to date cbc w/ auto diff in the morning to trend WBC Saline lock Rocephin Tylenol PRN fever Zofran IV PRN nausea vomiting 2. T2DM: HgA1c 8.7 Hold Metformin Low dose correctional scale insulin AC HS Accu Chek AC HS Hypoglycemia protocol Diabetic diet 3. Asthma: DuoNEB NEB PRN wheezing 4. h/o coronary arterial disease: Plavix Statin 5. Anemia, normocytic normochromic: cbc w/ auto diff in the morning to trend H/H; transfuse pRBC if hemoglobin <7.0, active bleeding, or symptomatic GI ppx: not currently indicated DVT ppx: Lovenox Code status: Full Prognosis: Stable Disposition: inpatient med surg Time Spent With Patient Time: Total time spent is greater than 50% in coordination of care (as documented) at patient's floor/unit and/or counseling patient: Total time spent with greater than 50% in coordination of care (as documented) at patient's floor/unit and/or counseling patient:: 25 - 35 minutes QUALITY Stroke Symptom Onset Unknown: No VTE Deep Vein Thrombosis/Pulmonary Embolism Present on Admission: No
[2021-08-30] MEDS: SENNOSIDES 1 TABLET PO SCH (21:40)
[2021-08-31] MEDS: 0.9 % SODIUM CHLORIDE 10 ML SYRINGE IV SCH (04:07)
[2021-08-31 07:21] LABS: Basophils # (Auto) 0.02 K/mcL (0.00-0.30); Basophils % (Auto) 0.3 % (0.0-2.0); Eosinophils # (Auto) 0.19 K/mcL (0.00-0.70); Eosinophils % (Auto) 2.8 % (0.0-7.0); Hematocrit 36.7 % (40.1-51.0); Hemoglobin 12.8 g/dL (13.7-17.5); Lymphocytes % (Auto) 19.2 % (15.5-49.0); Mean Cell Volume 89.3 fL (80.0-100.0); Mean Corpuscular HGB Conc 34.9 g/dL (31.0-36.0); Mean Platelet Volume 13.4 fL (7.4-10.4); Monocytes # (Auto) 0.57 K/mcL (0.10-0.90); Monocytes % (Auto) 8.4 % (1.0-12.0); Neutrophils % (Auto) 69.3 % (38.0-78.0); Platelet Count 134 K/mcL (140-440); RBC 4.11 M/mcL (4.63-6.08); Red Cell Distribution Width 12.2 % (11.5-14.5); WBC 6.8 K/mcL (4.5-11.0)
[2021-08-31 07:40] LABS: ALT/SGPT 63 U/L (<40); AST/SGOT 49 U/L (<40); Albumin 3.5 gm/dL (3.2-5.2); Albumin/Globulin Ratio 1.3 (1.0-2.3); Alkaline Phosphatase 100 U/L (39-117); Bilirubin,Total 1.2 mg/dL (0.1-1.0); Blood Urea Nitrogen 7 mg/dL (6-20); Calcium 8.5 mg/dL (8.6-10.4); Carbon Dioxide 24 mmol/L (22-30); Chloride 103 mmol/L (96-108); Globulin 2.6 gm/dL (2.2-3.7); Glomerular Filtration Rate 114; Glucose 155 mg/dL (70-105)
[2021-08-31] MEDS: DOCUSATE SODIUM 100 MG CAPSULE PO SCH (07:56)
[2021-08-31] MEDS: INSULIN LISPRO 1 UNIT/0.01 ML UNIT SQ SCH (07:56)
[2021-08-31] MEDS: NATTOKINASE PO SCH (07:57)
[2021-08-31] MEDS: cefTRIAXone 2 GM in DEXTROSE 5% IN WATER 50 ML IV SCH (08:00)
[2021-08-31] MEDS: ENOXAPARIN 40 MG/0.4 ML SYRINGE SQ SCH (08:01)
[2021-08-31] MEDS: ATORVASTATIN 40 MG TABLET PO SCH (08:01)
[2021-08-31] MEDS: POTASSIUM CHLORIDE 10 MEQ TABLET PO SCH (08:01)
--- NOTE | 2021-08-31 09:28 | Discharge Summary ---
Discharge Provider Provider Patient information: Note initiated : 08/31/21 at 9:26 am Service Date, if different from initiated Date: [] Patient: Vinay Clayton 56 y/o M admitted on 08/28/21 for fever, chills, urethral pain, low white count. Chief Complaint: [] Date of admission: 08/28/21 16:21 Discharge date: 08/31/21 Primary care physician: Lyn Lam PA-C Attending physician on admission: Calvin Rodriguez Consults: 08/28/21 Consult to Physician [CONS] Stat Comment: Consulting Provider: Calvin Rodriguez Reason For Exam: Physician to Consult Attending physician on discharge: Calvin Coleman Pui Discharge Meds Discharge Medications Home Medications albuterol sulfate 90 mcg/actuation aerosol inhaler (ProAir HFA) 2 puff INHALATION Q4H g 06/26/20 [History Confirmed 08/28/21 Last Taken Unknown] atorvastatin 40 mg tablet 40 mg PO QHS 06/26/20 [History Confirmed 08/28/21 Last Taken Unknown] metformin 1,000 mg tablet 1,000 mg PO BID 06/26/20 [History Confirmed 08/28/21 Last Taken Unknown] potassium chloride 10 mEq capsule,extended release 10 meq PO QDAY 08/28/21 [History Confirmed 08/28/21 Last Taken Unknown] soybean, fermented 50 mg capsule (Nattokinase) 50 mg PO DAILY 08/28/21 [History Confirmed 08/28/21 Last Taken 08/27/21] amoxicillin 875 mg-potassium clavulanate 125 mg tablet (Augmentin) 1 tab PO BID #14 tab 08/31/21 [Rx Last Taken Unknown] COURSE Hospital Course Hospital course: History of present illness: Mr. Clayton is a 56 year old M history of type 2 di abetes mellitus, CAD, asthma, presenting with 2-day history of fever, chills, nausea, increased urinary frequency, and dysuria. Last prior similar episode was 1 year ago. Yesterday evening he started to have acute onset of fever, chills, nausea, increased urinary frequency, and dysuria. In addition, he cannot take much oral intakes since then. [facility], and was being sent to our ED for further evaluations. Vital signs significant for tachycardia and tachypnea heart rate 110s, and with the breathing in the upper 20s. Rest of the vital signs in the normal limits. Labs significant for leukocytosis with WBC 18.5. Lactic acid normal at 1.1. Urinalysis suggest the presence of urinary tract infections. 08/29: Transferred to inpatient ICU. Afebrile. Blood and urine cultures no growth to date. WBC 18.3. Denies any dysuria. Denies any increased urinary frequency. Denies any fever or chills or sweating. Improving general body weakness. 08/30: Low grade fever Tmax 37.8 last night. Blood and urine cultures no growth to date. WBC 18.3-->11.9. Denies any dysuria. Denies any increased urinary frequency. Lower abdominal aches. No nausea or vomiting. Good appetite. 08/31: Reached clinical stability, discharged home with Rx given. Need to follow up with PCP in 2 weeks. All questions answered prior to patient being physically discharged. Discharge diagnosis: pyelonephritis Time Spent with Patient Time attestation: Total time spent providing and/or coordinating discharge services: Time spent: Less than 30 minutes EXAM Constitutional Vitals: Temp Pulse Resp BP Pulse Ox 36.6 C 71 16 137/94 97 08/31/21 08:00 08/31/21 08:00 08/31/21 08:00 08/31/21 08:00 08/31/21 08:00 General appearance: cooperative and no acute distress Head Head exam: Present atraumatic and normocephalic Eye Eye exam: Present EOMI and PERRL ENT ENT exam: Present mucous membranes moist, normal exam and normal external ear exam Neck Neck exam: Present normal inspection; Absent lymphadenopathy, tenderness or thyromegaly Respiratory Respiratory exam: Absent accessory muscle use, respiratory distress or wheezes Cardiovascular Cardiovascular exam: Present normal rate and rhythm; Absent JVD GI/Abdominal GI/Abdominal exam: Present normal bowel sounds and soft; Absent organomegaly or tenderness Rectal Rectal exam: Present deferred Extremities Exam Extremities exam: Present full ROM, normal capillary refill and normal insp ection; Absent tenderness Neurological Exam Neurological exam: Present alert, CN II-XII intact and oriented X3; Absent motor sensory deficit Psychiatric Psychiatric exam: Present normal affect and normal mood; Absent anxious or depressed Skin Skin exam: Present dry and intact Discharge Data Data Completed and Pending Labs on day of discharge: Labs from last 24 hours 08/31/21 08/31/21 05:56 05:56 WBC 6.8 RBC 4.11 L Hgb 12.8 L Hct 36.7 L MCV 89.3 MCH 31.1 MCHC 34.9 RDW 12.2 Plt Count 134 L MPV 13.4 H Neut % (Auto) 69.3 Lymph % (Auto) 19.2 [place] % (Auto) 8.4 Eos % (Auto) 2.8 Baso % (Auto) 0.3 Lymph # (Auto) 1.30 L [place] # (Auto) 0.57 Eos # (Auto) 0.19 Baso # (Auto) 0.02 Absolute Neutrophils 4.68 Sodium 138 Potassium 3.8 Chloride 103 Carbon Dioxide 24 Anion Gap 11.0 BUN 7 Creatinine 0.6 L GFR Calculation 114 Glucose 155 H Calcium 8.5 L Total Bilirubin 1.2 H AST 49 H ALT 63 H Alkaline Phosphatase 100 Total Protein 6.1 Albumin 3.5 Globulin 2.6 Albumin/Globulin Ratio 1.3 Preliminary micro results at discharge 08/28/21 12:50 Blood Culture - Preliminary Blood 08/28/21 12:40 Blood Culture - Preliminary Blood Discharge Plan Patient/Caregiver Discharge Instructions Activity: increase activity as tolerated Diet: Consistent Carbohydrate Prescriptions: New amoxicillin-pot clavulanate [Augmentin] 875-125 mg tablet 1 tab PO BID Qty: 14 0RF Continued atorvastatin 40 mg tablet 40 mg PO QHS 0RF metformin 1,000 mg tablet 1,000 mg PO BID 0RF albuterol sulfate [ProAir HFA] 90 mcg/actuation HFA aerosol inhaler 2 puff INHALATION Q4H 0RF potassium chloride 10 mEq Capsule, Extended Release 10 meq PO QDAY 0RF Nattokinase 50 mg Capsule 50 mg PO DAILY 0RF Rx Instructions: PO once daily Follow Up Plan Follow up with: Lyn Lam PA-C [Primary Care Provider] - Patient Disposition: Home, Self-Care Prognosis: Fair Rehab Potential: Good I certify that the patient requires SNF services: No Overall status at discharge: patient is progressing back to baseline Discharge Orders: Discharge Order (Routine); Ordered 08/31/21 Ordered By: Calvin BARR VTE Deep Vein Thrombosis/Pulmonary Embolism Present on Admission: No
== END 2021-08-31 11:50 | disposition home or self-care (01) | DRG 872 ==
LOC: ED 11:34 → MEDSUR 16:21 → ICU 19:31
PROVIDERS: ADMIT Internal Medicine; ATTEND Internal Medicine